=== PATIENT | male | born 1930 | race Caucasian/White ===

== ENCOUNTER 2020-10-08 14:45 | Emergency (ER) | payer MEDICARE, MEDICAID ==
[~2020-10-08] VITALS: Ht 185.4 cm; Wt 63.4 kg
[~2020-10-08 14:45] MED LIST: ASCO125T PO; ASPI-1265 PO; ATOR10TA87 PO; CLOP75TA15 PO; FOLI0.4T6 PO; LABE100T5 PO; PANT40TA54 PO; SENN-263 PO; THIA50TA10 PO; TRAM50TA2 PO; ZINC30CA PO
--- NOTE | 2020-10-08 18:43 | NUR ---
Note dillonone in EDM - 10/08/20 at 1845 by MIGUEL [employer] was down around 1700, orders neer been received per computer. CHENTE Deluca notified orders were placed earlier. IV saline lock, CT, blood draw and urine. feed research technician notified and draw blood with paper orders. Pt going to CT at this time, VSS, continue monitoring
[2020-10-08 19:41] LABS: ALANINE AMINOTRANSFERASE 31 U/L (12-78); ALBUMIN 3.1 G/DL (3.4-5.0); ALBUMIN/GLOBULIN RATIO 0.7 (1.1-1.5); ALKALINE PHOSPHATASE 79 IU/L (46-116); ANION GAP 8 (8-16); ASPARTATE AMINO TRANSFERASE 21 U/L (10-37); BILIRUBIN,TOTAL 0.5 MG/DL (0.1-1.0); BLOOD UREA NITROGEN 33 MG/DL (7-18); BUN/CREATININE RATIO 26.8 (5.4-32.0); CALCIUM 9.7 MG/DL (8.5-10.1); CHLORIDE 103 MMOL/L (99-107); CREATININE 1.23 MG/DL (0.60-1.10); GLUCOSE 95 MG/DL (70-104); POTASSIUM 3.9 MMOL/L (3.5-5.1); SODIUM 140 MMOL/L (135-145); TOTAL PROTEIN 7.8 G/DL (6.4-8.2); eGFR 56 ML/MIN
[2020-10-08 19:43] LABS: MAGNESIUM 2.2 MG/DL (1.5-2.4); TROPONIN I < 0.04 NG/ML (0.0-0.05)
[2020-10-08 19:59] LABS: BASOPHILS # (AUTO) 0.1 X10'3 (0-0.2); BASOPHILS % (AUTO) 0.7 % (0-1); EOSINOPHILS # (AUTO) 0.2 X10'3 (0-0.9); EOSINOPHILS % (AUTO) 1.7 % (0-6); HEMATOCRIT 39.1 % (42.0-52.0); HEMOGLOBIN 12.9 g/dl (14.0-17.9); LYMPHOCYTES # (AUTO) 2.2 X10'3 (1.1-4.8); LYMPHOCYTES % (AUTO) 23.3 % (21-51); MEAN CORPUSCULAR HEMOGLOBIN 29.8 PG (27.0-31.0); MEAN CORPUSCULAR HGB CONC 33.1 g/dL (33.0-36.5); MEAN CORPUSCULAR VOLUME 89.9 FL (78-98); MEAN PLATELET VOLUME 7.1 FL (7.4-10.4); MONOCYTES # (AUTO) 0.9 X10'3 (0-0.9); MONOCYTES % (AUTO) 9.7 % (2-12); NEUTROPHILS % (AUTO) 64.6 % (42-75); PLATELET COUNT 376 X10'3 (140-440); RED BLOOD COUNT 4.35 X10'6 (4.70-6.10); RED CELL DISTRIBUTION WIDTH 14.2 % (11.5-14.5); WHITE BLOOD COUNT 9.3 X10'3 (4.5-11.0)
[2020-10-08] MEDS ORDERED: diltiazem 5mg/ml 5ml inj. IV ONE (20:10)
[2020-10-08 20:16] LABS: URINE AMPHETAMINE SCREEN NEGATIVE (Neg); URINE BARBITUATE SCREEN NEGATIVE (Neg); URINE BENZODIAZEPINES SCREEN NEGATIVE (Neg); URINE CANNABINOID SCREEN NEGATIVE (Neg); URINE COCAINE SCREEN NEGATIVE (Neg); URINE METHADONE SCREEN NEGATIVE (Neg); URINE OPIATE SCREEN NEGATIVE (Neg); URINE PHENCYCLIDINE SCREEN NEGATIVE (Neg)
[2020-10-08 20:18] LABS: CLARITY,URINE CLEAR (Clear); COLOR,URINE YELLOW (Yellow); UA COLLECTION TYPE CLN CATCH MIDSTREAM
[2020-10-08 20:19] LABS: GLUCOSE, URINE NEGATIVE (Neg); KETONES,URINE NEGATIVE (Neg); LEUKOCYTE ESTERASE ,URINE NEGATIVE (Neg); NITRITES, URINE NEGATIVE (Neg); OCCULT BLOOD,URINE NEGATIVE (Neg); PH,URINE 6.5 (4.8-8.0); PROTEIN,URINE NEGATIVE (Neg)
[2020-10-08] MEDS ORDERED: normal saline 1000ML IV soln IVB ONE (20:40)
[2020-10-08 22:09] VITALS: BP 133/78
== END 2020-10-08 21:45 | disposition home or self-care (01) ==
LOC: ER 14:47
DX: E86.0 Dehydration (principal); E78.00 Pure hypercholesterolemia, unspecified; I10 Essential (primary) hypertension; Z88.0 Allergy status to penicillin; Z79.899 Other long term (current) drug therapy
CPT/HCPCS: 36415; 70450; 80053; 80305; 81003; 82140; 83605; 83735; 84484; 85025; 85610; 93005; 96360; 99285; J7030